=== PATIENT | male | born 1950 | race Caucasian/White ===

== ENCOUNTER → 2017-11-22 | Outpatient (REF) | payer MEDICARE ==
[~2017-11-22] MED LIST: AMLO-99 PO; ASPI-1471 PO; B-6; DUTA0.5C14 PO; FLAX100041 PO; HYDR12.556 PO; LANI SUBQ; LISI20TA29 PO; OMEG500C5 PO; OMEGA; PRAV40TA78 PO
== END ==
LOC: ZZSENDIN 09:39
PROVIDERS: ATTEND Family Medicine
DX: M25.561 Pain in right knee (principal)
CPT/HCPCS: 87071; 87073; 89060

== ENCOUNTER 2018-02-18 13:46 | Emergency (ER) | payer MEDICARE ==
[~2018-02-18 13:46] MED LIST changes: +AMLO-113 PO; -AMLO-99 PO
--- NOTE | 2018-02-18 13:58 | ER Report ---
History and Physical Time Seen By MD: 13:58 Hx. of Stated Complaint: pt reports R knee pain since yesterday, stepped wrong down the stairs HPI/ROS 67-year-old male with known chronic right knee pain. He walks with a cane. He was walking down steps yesterday and missed a step which caused him to twist his right knee. He presents to the emergency department with pain and swelling in his right knee. He is still able to walk using his cane, but ambulation is more painful than his baseline. No other injuries. He denies taking blood thinning medications. Allergies: Coded Allergies: Penicillins (Unverified Allergy, Unknown, UNKNOWN, 02/18/18) Home Meds Reported Medications [omega 3,6,9] No Conflict Check 11/19/13 [place]-3 Fatty Acids (FISH OIL) 500 Mg Capsule.dr, 500 MG PO 11/19/13 Flaxseed Oil (FLAX SEED OIL) 1,000 Mg Capsule, 1000 MG PO, CAPSULE 11/19/13 [B-6] No Conflict Check 11/19/13 Dutasteride (AVODART) 0.5 Mg Capsule, 0.5 MG PO QDAY, CAPSULE 11/19/13 Amlodipine Besylate (AMLODIPINE BESYLATE) 10 Mg Tablet, 1 TAB PO QDAY, TAB TAKE ONE TABLET BY MOUTH EVERY DAY 11/19/13 Aspirin (ASPIR 81) 81 Mg Tablet.dr, 81 MG PO QDAY, TAB 11/19/13 Lisinopril (LISINOPRIL) 20 Mg Tablet, 20 MG PO QDAY 11/19/13 Pravastatin Sodium (PRAVASTATIN SODIUM) 40 Mg Tablet, 40 MG PO QDAY 11/19/13 Insulin Glargine (LANTUS) 100 Unit/Ml Soln, 100 UNIT SUBQ 11/19/13 Discontinued Reported Medications Hydrochlorothiazide (HYDROCHLOROTHIAZIDE) 12.5 Mg Capsule, 1 TAB PO QDAY, CAPSULE TAKE ONE CAPSULE BY MOUTH EVERY DAY 11/19/13 Reviewed Nurses Notes: Yes Old Medical Records Reviewed: Yes Hx Smoking: No Smoking Status: Former Smoker Hx Substance Use Disorder: No Hx Alcohol Use: Yes (rare) Constitutional Vital Sign - Last 24 Hours 02/18/18 02/18/18 02/18/18 02/18/18 13:46 13:48 13:53 14:00 Temp 99.0 Pulse ??? 90 Resp 18 B/P (MAP) 201/117 201/117 (145) 185/106 (132) Pulse Ox 90 O2 Delivery Room Air 02/18/18 02/18/18 02/18/18 02/18/18 14:16 14:30 14:46 14:51 Pulse 82 78 79 B/P (MAP) 162/104 (123) Pulse Ox 89 90 87 02/18/18 02/18/18 02/18/18 02/18/18 15:00 15:06 15:21 15:30 Pulse 77 76 B/P (MAP) 172/105 (127) 173/98 (123) Pulse Ox 90 91 02/18/18 02/18/18 02/18/18 02/18/18 15:35 15:50 16:00 16:05 Pulse 78 78 77 B/P (MAP) 172/94 (120) Pulse Ox 90 90 90 Physical Exam General appearance: Alert no distress. Right knee: There is a moderate amount of swelling at the suprapatellar portion of the right knee. There is no joint effusion. There is no obvious deformity of the knee. There is moderate tenderness to the patella. The joint is stable with no comparable ligamentous laxity to the knee. There is no tenderness proximal or distal to the knee. Full range of motion both with passive and active movement. Neurologic exam: The patient has normal sensation distal to the injury. Vascular exam: Normal pulses and capillary refill in the foot DIFFERENTIAL DIAGNOSIS: After history and physical exam differential diagnosis was considered for knee injury including sprain, fracture, meniscus injury and soft tissue injury. Medical Decision Making EKG/Imaging Imaging X-ray: right knee was obtained. I viewed the images myself on the PACS system. My interpretation of the images is: no joint effusion, no fracture/dislocation. The radiologist interpretation had no clinically significant variation from this interpretation. ED Course/Re-evaluation ED Course Effusion patella bursa seen on x-ray. That is consistent with his physical exam and injury pattern. There is no effusion within the joint space. I discussed this with the patient. I told him that if we removed the fluid from the bursa, it was likely just really accumulate. Given that he is still able to ambulate, the risks of fluid aspiration outweigh the benefits at this point. There is no evidence of fracture or dislocation or quadriceps tendon tear. He was placed in an Efra wrap for comfort and also for compression. He will follow-up with his primary care physician. Decision to Disposition Date: Feb 18, 2018 Decision to Disposition Time: 16:22 Depart Departure Latest Vital Signs Vital Signs Date Time Temp Pulse Resp B/P (MAP) Pulse Ox O2 Delivery O2 Flow Rate FiO2 02/18/18 16:05 77 90 02/18/18 16:00 172/94 (120) 02/18/18 13:48 99.0 18 Room Air Impression: Primary Impression: Bursitis, knee Condition: Improved Disposition: HOME OR SELF-CARE Referrals: LAURIE CAGLE MD (PCP) Patient Instructions: Knee Bursitis (ED) Problem Qualifiers Primary Impression: Bursitis, knee Knee bursitis location: suprapatellar bursitis Laterality: right Qualified Codes: M70.51 - Other bursitis of knee, right knee BRENDEN DOMINIQUE MD Feb 18, 2018 13:58
--- NOTE | 2018-02-18 15:13 | RADIOLOGY IMAGING REPORT ---
FACILITY: [facility] PATIENT NAME: Lizzie Abebe : 1950 MR: [id number] V: [id number] EXAM DATE: ORDERING PHYSICIAN: BRENDEN DOMINIQUE TECHNOLOGIST: Location: [facility] Patient: Lizzie Abebe : 1950 Visit/Account:[id number] Date of Sevice: 02/18/2018 Exam type: KNEE 3 VIEW RIGHT History: twist right knee Comparison: March 22, 2017. Findings: There are severe degenerative changes involving the medial compartment of the right knee moderate deg enerative changes involving the lateral compartment with mild chondrocalcinosis. Moderate to severe degenerative changes also noted at the patellofemoral joint. Extensive marginal spurring is seen thr oughout all three compartments. Multiple well-corticated loose bodies projecting in the anterior asp ect of the knee joint as seen on the lateral view. There is joint effusion in the suprapatellar burs a. Soft tissue fullness in the popliteal fossa may represent additional fluid. No gross evidence of acute fracture IMPRESSION: 1. Extensive degenerative changes throughout the right knee with an effusion in the suprapatellar bu rsa and possibly the popliteal fossa Report Dictated By: Ximena Crowe MD at 02/18/2018 3:06 PM Report E-Signed By: Ximena Crowe MD at 02/18/2018 3:09 PM WSN:[email or web address]
[2018-02-18 16:00] VITALS: BP 172/94
== END 2018-02-18 16:21 | disposition home or self-care (01) ==
LOC: ER 14:03
DX: M70.51 Other bursitis of knee, right knee (principal)
CPT/HCPCS: 99283

== ENCOUNTER 2018-03-07 00:43 | Day surgery (SDC) | payer BC, MEDICARE ==
[~2018-03-07] VITALS: Ht 172.7 cm; Wt 106.6 kg
[~2018-03-07 00:43] MED LIST changes: +ATOR10TA24 PO
[2018-03-07] MEDS ORDERED: LIDOCAINE/SOD BICARB 8.4% SYR ID ONE (07:55)
[2018-03-07] MEDS ORDERED: NORMOSOL R SOLN(*) 1000 ML BAG 1,000 ML IV PRN (07:55)
[2018-03-07] MEDS ORDERED: PROPOFOL EMUL(*) 10MG/ML 20 ML 20 ML ONE ×2 (11:04→12:47)
[2018-03-07 11:41] VITALS: BP 156/94
[2018-03-07 12:58] VITALS: BP 110/78
[2018-03-07 13:20] VITALS: BP 139/91
[2018-03-07 13:21] VITALS: BP 136/90
== END 2018-03-07 13:35 | disposition home or self-care (01) ==
LOC: OR 00:43
PROVIDERS: ATTEND Family Medicine
DX: Z12.11 Encounter for screening for malignant neoplasm of colon (principal); K62.1 Rectal polyp; E11.9 Type 2 diabetes mellitus without complications; I10 Essential (primary) hypertension
CPT/HCPCS: 00811; 36416; 45380; 82948; 88305; J2704